=== PATIENT | male | born 2000 | race Caucasian/White ===

== ENCOUNTER 2023-07-17 20:07 | Emergency (ER) | payer SELFPAY ==
[~2023-07-17] VITALS: Ht 180.3 cm; Wt 68.2 kg
[2023-07-17 20:12] VITALS: TEMP 98.1
[2023-07-17 20:46] VITALS: BP 112/78; PULSE 65
== END 2023-07-17 20:57 | disposition home or self-care (01) ==
LOC: COL.ER 20:07
DX: R07.89 Other chest pain (principal); R06.02 Shortness of breath

== ENCOUNTER 2023-08-28 15:50 | Emergency (ER) | payer SELFPAY ==
[~2023-08-28] VITALS: Ht 177.8 cm; Wt 68.2 kg
[2023-08-28 15:56] VITALS: TEMP 98.2
[2023-08-28 16:28] LABS: PH 5.5 (5.0-8.5); URINE APPEARANCE CLEAR (CLEAR/HAZY); URINE BLOOD TRACE (NEGATIVE); URINE COLOR Dark Yellow (YELLOW); URINE GLUCOSE NEGATIVE (NEGATIVE); URINE KETONE TRACE (NEGATIVE); URINE NITRATE NEGATIVE (NEGATIVE); URINE PROTEIN(semi-quant) TRACE (NEGATIVE)
[2023-08-28 16:50] LABS: COLLECTION METHOD CLEAN CATCH
[2023-08-28] MEDS ORDERED: Azithromycin 250 MG TAB PO ONE (17:00)
[2023-08-28] MEDS ORDERED: cefTRIAXone 500 MG,Lidocaine PF 1% 1 ML IM ONE (17:00)
[2023-08-28 17:35] VITALS: BP 115/70; PULSE 69
== END 2023-08-28 17:35 | disposition home or self-care (01) ==
LOC: COL.ER 15:50
PROVIDERS: Family Medicine
DX: N39.0 Urinary tract infection, site not specified (principal)
CPT/HCPCS: J0696